=== PATIENT | female | born 1990 | race Caucasian/White ===

== ENCOUNTER 2018-07-09 21:27 | Emergency (ER) | payer SELFPAY ==
[~2018-07-09] VITALS: Ht 160 cm; Wt 87.0 kg
[2018-07-10 00:12] LABS: BASOPHILS % 0.5 % (0.0-2.0); EOSINOPHILS % 0.9 % (0.0-5.0); HEMATOCRIT. 38.5 % (36.0-48.0); HEMOGLOBIN. 13.6 g/dL (12.0-16.0); LYMPHOCYTES % 38.2 % (20.0-50.0); MEAN CORPUSCULAR HEMOGLOBIN 32.7 pg (28.0-32.0); MEAN CORPUSCULAR VOLUME 92.3 fL (81.0-99.0); MEAN PLATELET VOLUME 7.6 fl (7.4-10.4); MONOCYTES % 8.5 % (2.0-8.0); NEUTROPHILS % 51.9 % (40.0-76.0); PLATELET 256 x1000/uL (130-400); RED BLOOD CELL COUNT 4.17 mill/uL (4.2-5.4)
[2018-07-10 00:17] LABS: CHLORIDE 110 mEq/L (98-107)
[2018-07-10] MEDS ORDERED: LORAZEPAM 2MG/ML CPJ ONE (00:20)
[2018-07-10] MEDS ORDERED: HALOPERIDOL LACTATE 5MG/ML VIAL IM ONE ×2 (00:21→00:30)
[2018-07-10] MEDS ORDERED: LORAZEPAM 2MG/ML CPJ IM ONE (00:30)
[2018-07-10 00:53] LABS: CREATINE KINASE 199 IU/L (26-192)
[2018-07-10 00:55] LABS: ETHANOL BLOOD 314 mg/dL
[2018-07-10] MEDS ORDERED: LACTULOSE 20G/30ML UDC PO NR (01:15)
[2018-07-10] MEDS ORDERED: POTASSIUM CHLORIDE 20MEQ TABLET SR PO NR (01:15)
[2018-07-10 02:46] LABS: CLARITY URINE CLEAR (CLEAR); COLOR URINE YELLOW (YELLOW); KETONES URINE NEGATIVE (NEGATIVE); LEUKOCYTE ESTERASE URINE NEGATIVE (NEGATIVE); NITRITE URINE NEGATIVE (NEGATIVE); OCCULT BLOOD URINE 1+ (NEGATIVE); PH URINE 6.5 (4.5-8.0); PROTEIN URINE NEGATIVE (NEGATIVE); SPECIFIC GRAVITY URINE 1.004 (1.005-1.030); UROBILINOGEN URINE 0.2 E.U./dL (0.2-1.0)
[2018-07-10 03:02] LABS: *AMPHETAMINES SCREEN URINE NEGATIVE (NEGATIVE); *BARBITURATES SCREEN URINE NEGATIVE (NEGATIVE); *BENZODIAZEPINES SCREEN URINE NEGATIVE (NEGATIVE); *COCAINE SCREEN URINE NEGATIVE (NEGATIVE); METHADONE URINE SCREEN NEGATIVE (NEGATIVE); OPIATES URINE SCREEN NEGATIVE (NEGATIVE)
[2018-07-10 03:03] LABS: CANNABINOID URINE SCREEN NEGATIVE (NEGATIVE); PHENCYCLIDINE URINE SCREEN NEGATIVE (NEGATIVE)
[2018-07-10 16:46] VITALS: BP 122/87
== END 2018-07-10 17:42 | disposition home or self-care (01) ==
LOC: EDBD 21:27 → ER 21:27
DX: E86.0 Dehydration (principal); E87.8 Other disorders of electrolyte and fluid balance, not elsewhere classified; R45.6 Violent behavior; R51 Headache; F10.129 Alcohol abuse with intoxication, unspecified; Y90.8 Blood alcohol level of 240 mg/100 ml or more
CPT/HCPCS: 36415; 70450; 80053; 80305; 80307; 80320; 80329; 81003; 81025; 82140; 82550; 82962; 85025; 96372; 99284; J1630; J2060; Z7610; G0480